=== PATIENT | male | born 1965 | race Caucasian/White ===

== ENCOUNTER 2019-09-28 15:43 | Inpatient (IN) | payer OTHER ==
[~2019-09-28] VITALS: Ht 177.8 cm; Wt 125.1 kg
[2019-09-28] MEDS ORDERED: FUROSEMIDE 40 MG/4 ML VIAL (J1940) IV ONE (16:45)
[2019-09-28 17:09] LABS: BASO # 0.1 10^3/uL (0.0-0.2); BASO % 1.1 % (0.0-1.0); EOS # 0.1 10^3/uL (0.0-0.5); EOS % 1.8 % (0.0-3.0); HEMATOCRIT 46.7 % (42.0-52.0); HEMOGLOBIN 15.3 g/dl (13.5-17.5); LYMPH # 1.7 10^3/uL (1.5-5.0); LYMPH % 27.6 % (24.0-44.0); MEAN CORPUSCULAR HEMOGLOBIN 31.7 pg (27.0-33.0); MEAN CORPUSCULAR HGB CONC 32.8 g/dl (32.0-36.5); MEAN CORPUSCULAR VOLUME 96.7 fl (80.0-96.0); MONO # 0.5 10^3/uL (0.0-0.8); MONO % 7.7 % (0.0-5.0); NEUTROPHILS # 3.8 10^3/uL (1.5-8.5); NEUTROPHILS % 61.5 % (36.0-66.0); PLATELET COUNT, AUTOMATED 156 10^3/uL (150-450); RED BLOOD COUNT 4.83 10^6/uL (4.30-6.10); WHITE BLOOD COUNT 6.2 10^3/uL (4.0-10.0)
[2019-09-28 17:31] LABS: CK-MB VALUE MASS 2.8 NG/ML (<3.6); MB/CK RELATIVE INDEX 1.71 (< OR =4); TROPONIN I 0.03 NG/ML (< 0.10)
--- NOTE | 2019-09-28 17:57 | HPEPDOC ---
[facility] Medical History & Physical Date of Admission Sep 28, 2019 Date of Service: Sep 28, 2019 History and Physical CHIEF COMPLAINT: Dyspnea on exertion HISTORY OF PRESENT ILLNESS: Patient is 54M with no significant known PMH presented to the ER with complaints of worsening BHARDWAJ. He stated that he has had some intermittent episodes of SOB since June but was very limited and did not think much of it until over the past week when symptoms started to worsen. He went to the urgent care where a CXR and basic bloodwork was done, showing an elevated BNP of 3500 and was sent to the ER. He denies any prior cardiac history in the past and does not take medications at home. He was found tachycardic in the ER with HR in 110s and hypertensive with BP 170-180s systolic. He stated that he does take his BP at home from time to time and it usually is around 130s but not as high as now. He reports associated worsening abdominal distension although he does not notice any extremity swelling or any other symptoms otherwise including chest pain, palpitations, fever, chills, recent travels, recent surgeries. 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 He also reports that his heart rate has always been high even when he was in high school playing sports. PAST MEDICAL HISTORY: Refer to [facility] PAST SURGICAL HISTORY: none SOCIAL HISTORY: Consumes 3-8 beers occasionally, not on a daily basis and states that he never undergo any withdraws. Denies tobacco or illicit drug use. FAMILY HISTORY: Father- possibly HTN ALLERGIES: Please see below. REVIEW OF SYSTEMS: 10 point review of system negative except as stated in HPI HOME MEDICATIONS: Please see below. PHYSICAL EXAMINATION: General: No acute distress, Alert Eyes: Normal sclera, EOMI, ENRIQUE HENT: Atraumatic Cardiovascular: Tachycardia, normal rhythm. 1+ pitting edema b/l. Pulmonary: Mild R. base crackle, no wheezing GI: Soft, nontender, distended Skin: Warm and dry Neuro: CN grossly intact. No focal deficits. Strengths equal b/l. Psych: oriented x 3 LABORATORY DATA: See below. IMAGING: CXR- Findings: Cardiomegaly. No focal consolidation. No effusion. No pneumothorax. Skeletal structures intact. Impression: Cardiomegaly. MICROBIOLOGY: Please see below. ASSESSMENT AND PLAN: 1. SOB - Suspects CHF exacerbation in setting of elevated BNP, LE edema, abdominal distension. - Obtain D-dimer to r/o PE given tachycardia, immobility at work and SOB. - Low suspicion, not hypoxic. Follow up with CTA if D-dimer elevated and anticoagulated if needed. - Obtain ECHO. c/w Lasix IV. - daily weights, I/O monitoring. DVT ppx: Lovenox Code status: Full code Disposition: Home once medically improved Vital Signs Vital Signs Date Time Temp Pulse Resp B/P (MAP) Pulse Ox O2 Delivery O2 Flow Rate FiO2 09/28/19 17:16 110 96 Room Air 09/28/19 17:15 170/98 (122) 09/28/19 15:44 97.9 22 Laboratory Data Labs 24H Laboratory Tests 2 09/28/19 16:27: Total Creatine Kinase 164, Creatine Kinase MB 2.8, Creatine Kinase MB Relative Index 1.71, Troponin I 0.03 09/28/19 16:29: Immature Granulocyte % (Auto) 0.3, Neutrophils (%) (Auto) 61.5, Lymphocytes (%) (Auto) 27.6, Monocytes (%) (Auto) 7.7H, Eosinophils (%) (Auto) 1.8, Basophils (%) (Auto) 1.1H, Neutrophils # (Auto) 3.8, Lymphocytes # (Auto) 1.7, Monocytes # (Auto) 0.5, Eosinophils # (Auto) 0.1, Basophils # (Auto) 0.1, Nucleated Red Blood Cells % (auto) 0.0 CBC/BMP Laboratory Tests 09/28/19 16:29 Home Medications No Active Prescriptions or Reported Meds Allergies Coded Allergies: No Known Allergies (Verified Allergy, Unknown, 09/28/19) A-FIB/CHADSVASC A-FIB History Current/History of A-Fib/PAF?: No SOHAM CAMERON MD Sep 28, 2019 17:57
[2019-09-28 19:20] VITALS: BP 155/98
[2019-09-29] VITALS: BP 140/91
[2019-09-29] MEDS ORDERED: FUROSEMIDE 40 MG/4 ML VIAL (J1940) IV SCH (01:00)
[2019-09-29 04:00] VITALS: BP 145/80
[2019-09-29 06:05] LABS: HEMATOCRIT 46.8 % (42.0-52.0); HEMOGLOBIN 15.6 g/dl (13.5-17.5); MEAN CORPUSCULAR HEMOGLOBIN 31.7 pg (27.0-33.0); MEAN CORPUSCULAR HGB CONC 33.3 g/dl (32.0-36.5); MEAN CORPUSCULAR VOLUME 95.1 fl (80.0-96.0); PLATELET COUNT, AUTOMATED 169 10^3/uL (150-450); RED BLOOD COUNT 4.92 10^6/uL (4.30-6.10); WHITE BLOOD COUNT 6.8 10^3/uL (4.0-10.0)
[2019-09-29 06:22] LABS: BLOOD UREA NITROGEN 17 MG/DL (7-18); CALCIUM LEVEL 8.9 MG/DL (8.5-10.1); CARBON DIOXIDE LEVEL 30 MEQ/L (21-32); CHLORIDE LEVEL 104 MEQ/L (98-107); CREATININE FOR GFR 1.17 MG/DL (0.70-1.30); GLOMERULAR FILTRATION RATE > 60.0 (>56); GLUCOSE, FASTING 121 MG/DL (70-100); POTASSIUM SERUM 3.8 MEQ/L (3.5-5.1); SODIUM LEVEL 142 MEQ/L (136-145)
[2019-09-29] MEDS ORDERED: ISOVUE-370 76% 100ML VIAL (Q9967) As Ordered ONE (07:38)
[2019-09-29 08:00] VITALS: BP 168/100
--- NOTE | 2019-09-29 08:27 | REPVR ---
PROCEDURE INFORMATION: Exam: CT Angiography Chest With Contrast Exam date and time: 09/29/19 (7:42am) Age: 54 years old Clinical indication: Tachypnea. (+) D-dimer. Possible pulmonary embolism. TECHNIQUE: Imaging protocol: Computed tomographic angiography of the chest with intravenous contrast. 3D rendering: MIP and/or 3D reconstructed images were created by the technologist. Radiation optimization: All CT scans at this facility use at least one of these dose optimization techniques: automated exposure control; mA and/or kV adjustment per patient size (includes targeted exams where dose is matched to clinical indication); or iterative reconstruction. Contrast material: Isovue 370 Contrast volume: 75 ml Contrast route: IV COMPARISON: Chest films of 09/28/19 FINDINGS: Pulmonary arteries: Normal. No pulmonary emboli. Aorta: Unremarkable. No aortic aneurysm. No aortic dissection. Lungs: Unremarkable. No consolidation. No masses. Pleural space: No pneumothorax. Small bilateral pleural effusions. Heart: Stable cardiomegaly. No pericardial effusion. Lymph nodes: Unremarkable. No enlarged lymph nodes. Bones/joints: Unremarkable. No acute fracture. Soft tissues: Unremarkable. Upper abdomen: Scattered colonic diverticuli. IMPRESSION: No acute findings. Electronically signed by: Emily Heaton On 09/29/2019 08:27:15 AM
[2019-09-29] MEDS: ENOXAPARIN 40 MG/0.4 ML SYRINGE (J1650) SC SCH (08:42)
[2019-09-29] MEDS ORDERED: FLUBLOK(EGG FREE)(QUAD)INFLUENZA VACC 0.5ML SYRINGE (90682)18YRS&OLDER IM ONE (09:00)
[2019-09-29] MEDS: amLODIPine 5 MG TAB PO SCH (09:42)
[2019-09-29 10:44] LABS: NT-PRO BNP 3443 PG/ML (<125)
--- NOTE | 2019-09-29 11:15 | IPNPDOC ---
Date Seen The patient was seen on 09/29/19. Progress Note SUBJECTIVE: Patient was seen and examined this morning sitting up in bed. He states he feels much better and denies any current shortness of breath. He states he notices improvement in his abdominal distention. He denies any chest pain or palpitations. OBJECTIVE PHYSICAL EXAMINATION: VITAL SIGNS: Please see below. GENERAL: Alert, comfortable, in no acute distress HEENT: Normocephalic, atraumatic, moist mucous membranes NECK: Supple, trachea midline, no lymphadenopathy, no JVD CARDIOVASCULAR: Tachycardic rate. Regular rhythm, normal S1 and S2. No murmurs, rubs, or gallops appreciated RESPIRATORY: Clear to auscultation bilaterally with equal air entry bilaterally. No wheezing, rhonchi, or rales. ABDOMEN: Obese and somewhat distended, soft, nontender, bowel sounds present EXTREMITIES: Trace pitting edema bilaterally. No cyanosis. Pulses 2+/4 in bilateral upper and lower extremities SKIN: [place], warm, dry NEUROLOGIC: Alert and oriented 3 to person, place and time. No gross focal d eficits appreciated. PSYCHIATRIC: Mood and affect appropriate LABORATORY DATA, IMAGING STUDIES, MICROBIOLOGY: Please see below. Echocardiogram: Pending ASSESSMENT AND PLAN: 54-year-old male with no known past medical history who presented with worsening dyspnea on exertion, admitted for IV lasix and CHF workup # SOB - Suspects CHF exacerbation in setting of elevated BNP, LE edema, abdominal di stension. - D-dimer positive, CTA did not reveal a PE - Echocardiogram pending, continue IV Lasix - daily weights, I/O monitoring. # Sinus tachycardia - rate improved but remains in the low 100s at rest - CTA negative for PE - continue telemetry DVT prophylaxis: Lovenox Disposition: Home pending echocardiogram ATTENDING NOTE I have personally evaluated and examined the patient. Discussed with resident/student regarding plan of care and agree with the above assessment and plan. VS, I&O, 24H, Fishbone Vital Signs/I&O Vital Signs Date Time Temp Pulse Resp B/P (MAP) Pulse Ox O2 Delivery O2 Flow Rate FiO2 09/29/19 09:42 104 170/110 09/29/19 08:00 97.3 18 96 Room Air I&O- Last 24 Hours up to 6 AM 09/29/19 06:00 Intake Total 320 ml Output Total 6700 ml Balance -6380 ml Laboratory Data 24H LABS Laboratory Tests 2 09/28/19 16:27: Total Creatine Kinase 164, Creatine Kinase MB 2.8, Creatine Kinase MB Relative Index 1.71, Troponin I 0.03 09/28/19 16:29: Immature Granulocyte % (Auto) 0.3, Neutrophils (%) (Auto) 61.5, Lymphocytes (%) (Auto) 27.6, Monocytes (%) (Auto) 7.7H, Eosinophils (%) (Auto) 1.8, Basophils (%) (Auto) 1.1H, Neutrophils # (Auto) 3.8, Lymphocytes # (Auto) 1.7, Monocytes # (Auto) 0.5, Eosinophils # (Auto) 0.1, Basophils # (Auto) 0.1, Nucleated Red Blood Cells % (auto) 0.0 09/29/19 05:13: Nucleated Red Blood Cells % (auto) 0.0, D-Dimer, Quantitative 2909.79H, Anion Gap 8, Glomerular Filtration Rate > 60.0, Calcium Level 8.9, VF-Wfm-Y-Type Natriuretic Peptide 3443H CBC/BMP Laboratory Tests 09/28/19 16:29 09/29/19 05:13 CLARE HAINES D.O. Sep 29, 2019 11:15 SOHAM CAMERON MD Sep 29, 2019 14:25
[2019-09-29 12:00] VITALS: BP 141/91
[2019-09-29 16:00] VITALS: BP 156/106
[2019-09-29] MEDS: FUROSEMIDE 40 MG/4 ML VIAL (J1940) IV SCH (17:40)
[2019-09-29 20:00] VITALS: BP 143/80
--- NOTE | 2019-09-29 20:20 | ECGEPIP ---
[facility] - ED Test Date: 2019-09-28 Pat Name: SCOTT WORKMAN Department: Room: [place] [address] Gender: Male [employer] Operator: NAILA : 1965 Requested By: Anneliese Covarrubias Order Number: [id number] Reading MD: Mingo Wallis Measurements Intervals [place] Rate: 114 P: 51 [place]: 149 QRS: 26 QRSD: 116 T: 125 QT: 376 QTc: 520 Interpretive Statements SINUS TACHYCARDIA POSSIBLE LEFT ATRIAL ENLARGEMENT MODERATE INTRAVENTRICULAR CONDUCTION DELAY NONSPECIFIC T-WAVE ABNORMALITY NO PRIORS FOR COMPARISON Electronically Signed on 09-29-2019 20:20:06 EST by Mingo Wallis
[2019-09-30 04:00] VITALS: BP 142/100
[2019-09-30] MEDS: FUROSEMIDE 40 MG/4 ML VIAL (J1940) IV SCH (05:38)
[2019-09-30 05:52] LABS: HEMATOCRIT 49.8 % (42.0-52.0); HEMOGLOBIN 15.8 g/dl (13.5-17.5); MEAN CORPUSCULAR HEMOGLOBIN 30.4 pg (27.0-33.0); MEAN CORPUSCULAR HGB CONC 31.7 g/dl (32.0-36.5); MEAN CORPUSCULAR VOLUME 95.8 fl (80.0-96.0); PLATELET COUNT, AUTOMATED 163 10^3/uL (150-450); WHITE BLOOD COUNT 5.8 10^3/uL (4.0-10.0)
[2019-09-30 06:10] LABS: BLOOD UREA NITROGEN 18 MG/DL (7-18); CALCIUM LEVEL 8.9 MG/DL (8.5-10.1); CARBON DIOXIDE LEVEL 30 MEQ/L (21-32); CHLORIDE LEVEL 105 MEQ/L (98-107); CREATININE FOR GFR 1.22 MG/DL (0.70-1.30); GLOMERULAR FILTRATION RATE > 60.0 (>56); GLUCOSE, FASTING 132 MG/DL (70-100); SODIUM LEVEL 142 MEQ/L (136-145)
[2019-09-30 07:46] VITALS: BP 134/82
[2019-09-30] MEDS ORDERED: FURO20TA2 PO ×2 (08:57)
[2019-09-30] MEDS ORDERED: LISI10TA4 PO (08:57)
[2019-09-30] MEDS: ENOXAPARIN 40 MG/0.4 ML SYRINGE (J1650) SC SCH (09:00)
--- NOTE | 2019-09-30 09:19 | ECHO ---
DATE OF STUDY: 09/29/2019 REFERRING PHYSICIAN: Dr. Paz INDICATION: Edema. HEIGHT: 178 cm WEIGHT: 138 kg DIMENSIONS: IVS: 1.3 LV: 5.3 LVPW: 1.3 LA: 4.4 Aorta: 3.3 IVC: 2.5 Mitral E wave velocity: 96 E prime septal: 4.4 E prime lateral: 7.5 FINDINGS: The study is of acceptable technical quality. The patient is in sinus rhythm with ventricular rate approximately 110 beats per minute. Left ventricle is normal size. Mild left ventricular hypertrophy is noted. There is severe global hypokinesis, estimated LVEF is approximately 20%. Right ventricle was poorly visualized, but does not appear grossly enlarged. Left atrium is moderately enlarged, right atrium was poorly seen. Aortic valve has three cusps. It is mildly sclerotic, but mobility is preserved. There are also degenerative abnormalities of the mitral valve with mitral annular calcifications. Tricuspid valve appears normal. Pulmonic valve was not well seen. Trivial pericardial effusion is noted. Inferior vena cava is dilated and there is minimal collapse with inspiration indicative of very high central venous pressure. Aortic root is normal. Aortic arch and abdominal aorta were not well seen. Doppler interrogation of aortic valve reveals no stenosis or insufficiency. There is [id number] mitral insufficiency and trace tricuspid insufficiency. Unfortunately, quality of TR jet was not sufficient to adequately estimate pulmonary artery pressure. Evaluation of diastolic function is compromised by fusion of mitral E and A wave, but tissue Doppler velocities are markedly reduced and I assume at least moderate diastolic dysfunction. CONCLUSIONS: 1. Study is of acceptable technical quality, the patient is in sinus rhythm. 2. Normal LV size with mild LVH and severe global hypokinesis, estimated LVEF approximately 20%. At least grade 2 diastolic dysfunction. 2. No hemodynamically significant valvular disease. 3. Very high central venous pressure. 4. Unable to estimate pulmonary artery pressure. COMMENT: Subacute bacterial endocarditis (SBE) prophylaxis is not recommended. The study is most consistent with nonischemic cardiomyopathy, but ischemic cardiomyopathy should be considered as well.
[2019-09-30] MEDS ORDERED: ENTR1TAB PO (09:20)
[2019-09-30 09:56] VITALS: BP 134/82
[2019-09-30] MEDS: amLODIPine 5 MG TAB PO SCH (09:56)
--- NOTE | 2019-09-30 10:46 | DS.PDOC ---
Discharge Summary General Date of Admission Sep 28, 2019 at 17:45 Date of Discharge 09/30/2019 Attending Physician: SOHAM CAMERON MD Discharge Summary PROCEDURES PERFORMED DURING STAY: None. ADMITTING DIAGNOSES: 1. Shortness of breath DISCHARGE DIAGNOSES: 1. Systolic and diastolic CHF with reduced EF 2. Ischemic vs nonischemic cardiomyopathy COMPLICATIONS/CHIEF COMPLAINT: Shortness Of Breath. HISTORY OF PRESENT ILLNESS: 54 year old male who presented to the ED with worsening dyspnea on exertion, which initially started in June. The patient states that over the past week his symptoms started to worsen to the point where he went to urgent care. He had also noticed worsening abdominal distention at home but denied any increased leg swelling, chest pain, palpitations, fevers, chills, or recent travel. While at urgent care, the patient was noted to have an elevated BNP of 3500 and was sent to the emergency room. During emergency room evaluation, the patient was found to have an elevated heart rate in the 110s and hypertension with systolic blood pressures in the 170s. He denies any history of reactive disease in the past and does not take any medications at home. He states that he thinks his heart rate has always been high, even when he was young in high school. He denies knowing any history of elevated blood pressures. He also admits to drinking up to 8 beers a day a few times a week. He denies any smoking or illicit drug use. HOSPITAL COURSE: The patient was admitted to the hospital and started on IV Lasix for diuresis. Due to his tachycardia and increasing shortness of breath, a d-dimer was ordered to rule out PE. D-dimer came back positive and follow-up CTA of the chest was negative for PE. The patient noted symptomatic improvement of his shortness of breath and abdominal distention with the IV Lasix. An echocardiogram was also ordered to evaluate for CHF. The echocardiogram revealed systolic dysfunction with an EF of 20% and grade 2 diastolic dysfunction. The patient was continued on oral Lasix and started on Entresto. Diet modification with low sodium diet was also discussed with the patient. The patient will follow-up with Dr. Almodovar in the outpatient setting for further evaluation and management of his heart failure. He will also establish with a PCP as he has not been to a doctor in many years. On day of discharge, the patient was found to be stable and safe for discharge home with close follow-up. DISCHARGE MEDICATIONS: Please see below. ALLERGIES: Please see below. PHYSICAL EXAMINATION ON DISCHARGE: VITAL SIGNS: Please see below. GENERAL: Alert, comfortable, in no acute distress HEENT: Normocephalic, atraumatic, moist mucous membranes NECK: Supple, trachea midline, no lymphadenopathy, no JVD CARDIOVASCULAR: Tachycardic rate. Regular rhythm, normal S1 and S2. No murmurs, rubs, or gallops appreciated RESPIRATORY: Clear to auscultation bilaterally with equal air entry bilaterally. No wheezing, rhonchi, or rales. ABDOMEN: Obese and somewhat distended, soft, nontender, bowel sounds present EXTREMITIES: Trace pitting edema bilaterally. No cyanosis. Pulses 2+/4 in bilateral upper and lower extremities SKIN: [place], warm, dry NEUROLOGIC: Alert and oriented 3 to person, place and time. No gross focal deficits appreciated. PSYCHIATRIC: Mood and affect appropriate LABORATORY DATA: Please see below. IMAGING: CTA 09/29: Cardiomegaly. No acute findings. Echocardiogram: 1. Study is of acceptable technical quality, the patient is in sinus rhythm. 2. Normal LV size with mild LVH and severe global hypokinesis, estimated LVEF approximately 20%. At least grade 2 diastolic dysfunction. 3. No hemodynamically significant valvular disease. 4. Very high central venous pressure. 5. Unable to estimate pulmonary artery pressure. PROGNOSIS: Fair ACTIVITY: As tolerated. 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 Follow-up with your PCP within 7 days 2. Follow up with cardiology as soon as possible to discuss echocardiogram results and further treatment needs. 3. Please start taking Lasix 20mg and Lisinopril 10mg daily 4. If your symptoms return or your condition worsens, please call your PCP or return to the ED for further evaluation. ITEMS TO FOLLOWUP ON ON OUTPATIENT: 1. New diagnosis of CHF DISCHARGE CONDITION: Stable. TIME SPENT ON DISCHARGE: 35 minutes. Attending attestation: I have personally evaluated and examined the patient. Discussed with resident/student regarding plan of care and agree with the above discharge assessment and plan. Patient found to have newly diagnosed combine systolic and diastolic heart failure EF 20%, likely have been ongoing for many years without a diagnosis as patient does not follow a PCP routinely. Patient currently asymptomatic with no chest pain and SOB had resolved. LE swelling had been very minimal, from 1+ to trace currently. Had extensively discussed goals of care and medical compliance in an attempt to improve cardiac function. He is stable for discharge at this time but will require close cardiology follow up for further workup while maintaining on GDMT. Vital Signs/I&Os Vital Signs Date Time Temp Pulse Resp B/P (MAP) Pulse Ox O2 Delivery O2 Flow Rate FiO2 09/30/19 09:56 99 134/82 09/30/19 07:46 97.6 18 96 Room Air I&O- Last 24 Hours up to 6 AM 09/30/19 06:00 Intake Total 1020 ml Output Total 4350 ml Balance -3330 ml Laboratory Data Labs 24H Laboratory Tests 2 09/30/19 05:31: Nucleated Red Blood Cells % (auto) 0.0, Anion Gap 7L, Glomerular Filtration Rate > 60.0, Calcium Level 8.9 CBC/BMP Laboratory Tests 09/30/19 05:31 Discharge Medications Scheduled Furosemide (Furosemide) 20 Mg Tablet, 20 MG PO DAILY Sacubitril/Valsartan (Entresto 24 mg-26 mg Tablet) 1 Each Tablet, 1 TAB PO BID Allergies Coded Allergies: No Known Allergies (Verified Allergy, Unknown, 09/28/19) CLARE HAINES D.O. Sep 30, 2019 10:46 SOHAM CAMERON MD Sep 30, 2019 10:51
[2019-09-30] MEDS ORDERED: CARV6.25 PO (11:08)
== END 2019-09-30 11:05 | disposition home or self-care (01) | DRG 194 ==
LOC: M ED 15:43 → M ED INP 17:45 → M PCU 19:22
PROVIDERS: ADMIT Student in an Organized Health Care Education/Training Program; ATTEND Student in an Organized Health Care Education/Training Program
DX: I50.43 Acute on chronic combined systolic (congestive) and diastolic (congestive) heart failure (principal); I42.8 Other cardiomyopathies; R00.0 Tachycardia, unspecified; I25.5 Ischemic cardiomyopathy

== ENCOUNTER → 2019-09-28 | Outpatient (CLI) | payer OTHER ==
[~2019-09-28] MED LIST: CARV6.25 PO; ENTR1TAB PO; FURO20TA2 PO; LISI10TA4 PO
--- NOTE | 2019-09-28 14:30 | REP ---
Clinical: Shortness of breath. Technique: PA and lateral. Comparison: None. Findings: Cardiomegaly. No focal consolidation. No effusion. No pneumothorax. Skeletal structures intact. Impression: Cardiomegaly. Electronically Signed by Nael Garcia MD 09/28/2019 02:21 P
[2019-09-28 15:08] LABS: ALBUMIN 3.6 GM/DL (3.2-5.2); ALT/SGPT 68 U/L (12-78); BLOOD UREA NITROGEN 19 MG/DL (7-18); CALCIUM LEVEL 8.6 MG/DL (8.5-10.1); CARBON DIOXIDE LEVEL 23 MEQ/L (21-32); CHLORIDE LEVEL 106 MEQ/L (98-107); CK-MB VALUE MASS 2.8 NG/ML (<3.6); CPK CREATINE PHOSPHOKINASE 179 U/L (39-308); GLOMERULAR FILTRATION RATE > 60.0 (>56); GLUCOSE, FASTING 132 MG/DL (70-100); MB/CK RELATIVE INDEX 1.56 (< OR =4); NT-PRO BNP 3493 PG/ML (<125); POTASSIUM SERUM 4.6 MEQ/L (3.5-5.1); SODIUM LEVEL 142 MEQ/L (136-145); TOTAL PROTEIN 6.9 GM/DL (6.4-8.2)
== END ==
LOC: M LAB 13:39
PROVIDERS: ATTEND Physician Assistant Medical
DX: I51.7 Cardiomegaly (principal); R06.02 Shortness of breath; R79.89 Other specified abnormal findings of blood chemistry

== ENCOUNTER → 2019-10-05 | Outpatient (CLI) | payer OTHER ==
[2019-10-05 14:19] LABS: CHOLESTEROL RISK RATIO 7.531 (<5)
[2019-10-05 15:13] LABS: HEMOGLOBIN A1c 6.7 %
== END ==
LOC: M PLALAB 10:55
PROVIDERS: ATTEND Internal Medicine
DX: Z00.00 Encounter for general adult medical examination without abnormal findings (principal)

== ENCOUNTER → 2020-05-31 | Outpatient (REF) | payer OTHER ==
[2020-05-31 20:23] LABS: ALBUMIN 3.7 GM/DL (3.2-5.2); ALT/SGPT 26 U/L (12-78); BILIRUBIN,TOTAL 0.6 MG/DL (0.2-1.0); BLOOD UREA NITROGEN 20 MG/DL (7-18); CALCIUM LEVEL 8.9 MG/DL (8.5-10.1); CARBON DIOXIDE LEVEL 25 MEQ/L (21-32); CHLORIDE LEVEL 108 MEQ/L (98-107); CHOLESTEROL LEVEL 139 MG/DL (<200); CHOLESTEROL RISK RATIO 3.971 (<5); CREATININE FOR GFR 0.98 MG/DL (0.70-1.30); GLOMERULAR FILTRATION RATE > 60.0 (>56); GLUCOSE, FASTING 150 MG/DL (70-100); HDL CHOLESTEROL 35 MG/DL (>40); LDL CHOLESTEROL 80 MG/DL (<100); NON-HDL-C 104 MG/DL; POTASSIUM SERUM 4.4 MEQ/L (3.5-5.1); SODIUM LEVEL 140 MEQ/L (136-145); TOTAL PROTEIN 6.5 GM/DL (6.4-8.2); TRIGLYCERIDES LEVEL 119 MG/DL (<150)
== END ==
LOC: M LABDRAWC 11:42
PROVIDERS: ATTEND Nurse Practitioner Family
DX: I25.10 Atherosclerotic heart disease of native coronary artery without angina pectoris (principal); I50.40 Unspecified combined systolic (congestive) and diastolic (congestive) heart failure

== ENCOUNTER → 2020-09-07 | Outpatient (REF) | payer OTHER ==
[2020-09-07 13:45] LABS: CALCIUM LEVEL 9.2 MG/DL (8.5-10.1); MAGNESIUM LEVEL 2.2 MG/DL (1.8-2.4)
[2020-09-07 13:50] LABS: HEMOGLOBIN A1c 5.4 %
== END ==
LOC: M SFHCPLAZ 10:09
DX: E11.9 Type 2 diabetes mellitus without complications (principal); R25.2 Cramp and spasm

== ENCOUNTER → 2020-10-19 | Outpatient (CLI) | payer OTHER ==
[~2020-10-19] MED LIST changes: +ASPI81TA26 PO; +ATOR80TA59 PO; +CARV25TA PO; +LOSA50TA88 PO; +METF10004 PO
== END ==
LOC: M LABSMTC 10:34
PROVIDERS: ATTEND Anesthesiology
DX: Z01.812 Encounter for preprocedural laboratory examination (principal); Z20.822 Contact with and (suspected) exposure to COVID-19

== ENCOUNTER → 2020-12-24 | Outpatient (CLI) | payer OTHER ==
[~2020-12-24] MED LIST changes: +LISI10TA22 PO; -LISI10TA4 PO
== END ==
LOC: M LABSMTC 08:05
PROVIDERS: ATTEND Anesthesiology
DX: Z01.812 Encounter for preprocedural laboratory examination (principal); Z20.822 Contact with and (suspected) exposure to COVID-19

== ENCOUNTER 2020-12-29 07:55 | Day surgery (SDC) | payer OTHER ==
[~2020-12-29] VITALS: Ht 177.8 cm; Wt 102.1 kg
[~2020-12-29 07:55] MED LIST changes: +LIDOCAINE 2% 100MG/5ML SDV (FOR ANES.) As Ordered ONE; +NS 1,000 ML IV ONE; +propofoL 200 MG/20 ML VIAL As Ordered ONE
--- NOTE | 2020-12-29 09:23 | ROOR ---
Patient Name: Rusty Pan Procedure Date: 12/29/2020 8:35 AM Date of : 1965 Age: 55 Room: [facility] Gender: Male Note Status: Finalized Procedure: Colonoscopy Indications: Screening for colorectal malignant neoplasm Providers: Dioni Lopez MD Referring MD: Dee Nolasco Md, [facility] Requesting Provider: Medicines: Monitored Anesthesia Care Complications: No immediate complications. Procedure: Pre-Anesthesia Assessment: - Prior to the procedure, a History and Physical was performed, and patient medications and allergies were reviewed. The patient is competent. The risks and benefits of the procedure and the sedation options and risks were discussed with the patient. All questions were answered and informed consent was obtained. Patient identification and proposed procedure were verified by the physician, the nurse and the anesthesiologist in the procedure room. Mental Status Examination: alert and oriented. Airway Examination: normal oropharyngeal airway and neck mobility. Respiratory Examination: clear to auscultation. CV Examination: normal. Prophylactic Antibiotics: The patient does not require prophylactic antibiotics. Prior Anticoagulants: The patient has taken no previous anticoagulant or antiplatelet agents. ASA Grade Assessment: II - A patient with mild systemic disease. After reviewing the risks and benefits, the patient was deemed in satisfactory condition to undergo the procedure. The anesthesia plan was to use monitored anesthesia care (MAC). Immediately prior to administration of medications, the patient was re-assessed for adequacy to receive sedatives. The heart rate, respiratory rate, oxygen saturations, blood pressure, adequacy of pulmonary ventilation, and response to care were monitored throughout the procedure. The physical status of the patient was re-assessed after the procedure. The Colonoscope was introduced through the anus and advanced to the terminal ileum, with identification of the appendiceal orifice and IC valve. The colonoscopy was performed without difficulty. The patient tolerated the procedure well. The quality of the bowel preparation was good. The terminal ileum, ileocecal valve, appendiceal orifice, and rectum were photographed. Scope insertion time was 2 minutes. Scope withdrawal time was 12 minutes. The total duration of the procedure was 14 minutes. Findings: The perianal and digital rectal examinations were normal. The terminal ileum appeared normal. Five sessile polyps were found in the recto-sigmoid colon, descending colon and ascending colon. The polyps were 4 to 10 mm in size. These polyps were removed with a cold snare. Resection and retrieval were complete. To close a defect after polypectomy, one hemostatic clip was successfully placed. There was no bleeding at the end of the procedure. Verification of patient identification for the specimen was done by the physician and nurse using the patient's name, date and medical record number. Estimated blood loss was minimal. Multiple small and large-mouthed diverticula were found from sigmoid to descending colon. There was no evidence of diverticular bleeding. Non-bleeding external and internal hemorrhoids were found during retroflexion. The hemorrhoids were medium-sized. Impression: - The examined portion of the ileum was normal. - Five 4 to 10 mm polyps at the recto-sigmoid colon, in the descending colon and in the ascending colon, removed with a cold snare. Resected and retrieved. Clip was placed. - Moderate diverticulosis from sigmoid to descending colon. There was no evidence of diverticular bleeding. - Non-bleeding external and internal hemorrhoids. Recommendation: - Patient has a contact number available for emergencies. The signs and symptoms of potential delayed complications were discussed with the patient. Return to normal activities tomorrow. Written discharge instructions were provided to the patient. - High fiber diet. - Continue present medications. - Use fiber, for example Citrucel, Fibercon, Konsyl or Metamucil. - Await pathology results. - Repeat colonoscopy in 3 - 5 years for surveillance based on pathology results. - Telephone GI clinic for pathology results in 2 weeks. - Return to primary care physician. Procedure Code(s): --- Professional --- 62378, Colonoscopy, flexible; with removal of tumor(s), polyp(s), or other lesion(s) by snare technique Diagnosis Code(s): --- Professional --- Z12.11, Encounter for screening for malignant neoplasm of colon K64.8, Other hemorrhoids K63.5, Polyp of colon K57.30, Diverticulosis of large intestine without perforation or abscess without bleeding CPT copyright 2019 [employer]. All rights reserved. The codes documented in this report are preliminary and upon band tacker review may be revised to meet current compliance requirements. Dioni Lopez MD Dioni Lopez MD 12/29/2020 9:23:18 AM Electronically signed by Dioni Lopez MD Number of Addenda: 0 Note Initiated On: 12/29/2020 8:35 AM Estimated Blood Loss: Estimated blood loss was minimal.
[2020-12-29 09:35] VITALS: BP 112/56
== END 2020-12-29 09:40 | disposition home or self-care (01) ==
LOC: M OPP 07:55
PROVIDERS: ATTEND Internal Medicine Gastroenterology
DX: Z12.11 Encounter for screening for malignant neoplasm of colon (principal); K63.5 Polyp of colon; K57.30 Diverticulosis of large intestine without perforation or abscess without bleeding; K64.8 Other hemorrhoids; I50.9 Heart failure, unspecified; E11.9 Type 2 diabetes mellitus without complications; Z79.82 Long term (current) use of aspirin; Z79.84 Long term (current) use of oral hypoglycemic drugs; Z79.899 Other long term (current) drug therapy

== ENCOUNTER → 2021-08-01 | Outpatient (REF) | payer OTHER ==
[~2021-08-01] MED LIST changes: -LIDOCAINE 2% 100MG/5ML SDV (FOR ANES.) As Ordered ONE; -NS 1,000 ML IV ONE; -propofoL 200 MG/20 ML VIAL As Ordered ONE
[2021-08-01 11:25] LABS: HEMATOCRIT 42.2 % (42.0-52.0); HEMOGLOBIN 14.4 g/dl (13.5-17.5); MEAN CORPUSCULAR HEMOGLOBIN 31.4 pg (27.0-33.0); MEAN CORPUSCULAR HGB CONC 34.1 g/dl (32.0-36.5); MEAN CORPUSCULAR VOLUME 92.1 fl (80.0-96.0); PLATELET COUNT, AUTOMATED 171 10^3/uL (150-450); RED BLOOD COUNT 4.58 10^6/uL (4.30-6.10); WHITE BLOOD COUNT 4.7 10^3/uL (4.0-10.0)
[2021-08-01 11:37] LABS: ALBUMIN 3.6 GM/DL (3.2-5.2); ALT/SGPT 36 U/L (12-78); BILIRUBIN,TOTAL 0.6 MG/DL (0.2-1.0); BLOOD UREA NITROGEN 16 MG/DL (7-18); CARBON DIOXIDE LEVEL 29 MEQ/L (21-32); CHLORIDE LEVEL 109 MEQ/L (98-107); CHOLESTEROL LEVEL 105 MG/DL (<200); CHOLESTEROL RISK RATIO 2.625 (<5); CREATININE FOR GFR 0.86 MG/DL (0.70-1.30); FREE T4 0.94 NG/DL (0.76-1.46); GLOMERULAR FILTRATION RATE > 60.0 (>56); GLUCOSE, FASTING 168 MG/DL (70-100); HDL CHOLESTEROL 40 MG/DL (>40); LDL CHOLESTEROL 51 MG/DL (<100); NON-HDL-C 65 MG/DL; POTASSIUM SERUM 4.5 MEQ/L (3.5-5.1); SODIUM LEVEL 142 MEQ/L (136-145); TOTAL PROTEIN 6.7 GM/DL (6.4-8.2); TRIGLYCERIDES LEVEL 72 MG/DL (<150)
[2021-08-01 11:48] LABS: HEMOGLOBIN A1c 5.5 %
[2021-08-01 12:28] LABS: HIV 1&2 SCREEN CENTAUR NEGATIVE (NEGATIVE)
[2021-08-01 12:42] LABS: HEPATITIS C VIRUS ABY INDEX < 0.0 INDEX (<0.8)
== END ==
LOC: M SFHCPLAZ 07:44
DX: Z00.00 Encounter for general adult medical examination without abnormal findings (principal); E78.5 Hyperlipidemia, unspecified; E66.9 Obesity, unspecified; R73.03 Prediabetes

== ENCOUNTER → 2021-08-07 | Outpatient (REF) | payer OTHER | LOC: M LAB REF 19:31 | PROVIDERS: ATTEND Physician Assistant | DX: D23.39 Other benign neoplasm of skin of other parts of face (principal) ==

== ENCOUNTER → 2022-09-10 | Outpatient (REF) | payer OTHER ==
[~2022-09-10] MED LIST changes: +LOSA50TA28 PO; -LOSA50TA88 PO
[2022-09-10 11:57] LABS: HEMOGLOBIN A1c 5.5 % (4.0-6.0)
[2022-09-10 12:28] LABS: ALBUMIN 3.7 G/DL (3.2-5.2); ALKALINE PHOSPHATASE 40 U/L (46-116); ALT/SGPT 29 U/L (7.0-40); AST/SGOT 20 U/L (<34); BILIRUBIN,TOTAL 0.7 MG/DL (0.3-1.2); BLOOD UREA NITROGEN 21 MG/DL (9-23); CALCIUM LEVEL 8.8 MG/DL (8.5-10.1); CARBON DIOXIDE LEVEL 28 MMOL/L (20-31); CHLORIDE LEVEL 105 MMOL/L (98-107); CHOLESTEROL LEVEL 111 MG/DL (<200); CHOLESTEROL RISK RATIO 2.73 (<5); GLOMERULAR FILTRATION RATE > 60.0 (>56); GLUCOSE, FASTING 125 MG/DL (60-100); HDL CHOLESTEROL 40.6 MG/DL (>40); LDL CHOLESTEROL 50.6 MG/DL (<100); NON-HDL-C 70 MG/DL; POTASSIUM SERUM 4.7 MMOL/L (3.5-5.1); SODIUM LEVEL 141 MMOL/L (136-145); TOTAL PROTEIN 6.4 G/DL (5.7-8.2); TRIGLYCERIDES LEVEL 99 MG/DL (<150)
== END ==
LOC: M SFHCCLAY 09:00
PROVIDERS: ATTEND Student in an Organized Health Care Education/Training Program
DX: E78.5 Hyperlipidemia, unspecified (principal); R73.03 Prediabetes; E66.9 Obesity, unspecified

== ENCOUNTER 2022-10-11 14:28 | Emergency (ER) | payer OTHER ==
[~2022-10-11] VITALS: Ht 177.8 cm; Wt 110.8 kg
[2022-10-11] MEDS ORDERED: OXYMETAZOLINE 0.05% NASAL SPRAY (AFRIN) ONE (16:15)
[2022-10-11 16:31] VITALS: BP 138/72
== END 2022-10-11 16:46 | disposition home or self-care (01) ==
LOC: M ED 16:25
DX: R04.0 Epistaxis (principal); Z87.09 Personal history of other diseases of the respiratory system; E11.9 Type 2 diabetes mellitus without complications; I10 Essential (primary) hypertension; Z79.82 Long term (current) use of aspirin; Z79.84 Long term (current) use of oral hypoglycemic drugs; Z79.899 Other long term (current) drug therapy

== ENCOUNTER → 2023-03-25 | Outpatient (REF) | payer OTHER | LOC: M SFHCPLAZ 16:58 | PROVIDERS: ATTEND Family Medicine | DX: Z53.9 Procedure and treatment not carried out, unspecified reason (principal) ==

== ENCOUNTER → 2023-05-16 | Outpatient (CLI) | payer OTHER ==
[2023-05-16 17:29] LABS: HEMOGLOBIN 14.6 g/dl (13.5-17.5); MEAN CORPUSCULAR HEMOGLOBIN 30.8 pg (27.0-33.0); MEAN CORPUSCULAR HGB CONC 33.2 g/dl (32.0-36.5); MEAN CORPUSCULAR VOLUME 92.8 fl (80.0-96.0); PLATELET COUNT, AUTOMATED 196 10^3/uL (150-450); RED BLOOD COUNT 4.74 10^6/uL (4.30-6.10); WHITE BLOOD COUNT 6.5 10^3/uL (4.0-10.0)
[2023-05-16 17:59] LABS: ALKALINE PHOSPHATASE 50 U/L (46-116); ALT/SGPT 39 U/L (7.0-40); AST/SGOT 24 U/L (<34); BILIRUBIN,TOTAL 0.9 MG/DL (0.3-1.2); BLOOD UREA NITROGEN 18 MG/DL (9-23); CALCIUM LEVEL 9.3 MG/DL (8.5-10.1); CARBON DIOXIDE LEVEL 27 MMOL/L (20-31); CHLORIDE LEVEL 108 MMOL/L (98-107); CHOLESTEROL LEVEL 92 MG/DL (<200); CHOLESTEROL RISK RATIO 2.94 (<5); CREATININE FOR GFR 0.88 MG/DL (0.70-1.30); GLOMERULAR FILTRATION RATE > 60.0 (>56); GLUCOSE, FASTING 89 MG/DL (60-100); HDL CHOLESTEROL 31.2 MG/DL (>40); LDL CHOLESTEROL 36.2 MG/DL (<100); NON-HDL-C 60.8 MG/DL; POTASSIUM SERUM 4.5 MMOL/L (3.5-5.1); SODIUM LEVEL 141 MMOL/L (136-145); TOTAL PROTEIN 6.9 G/DL (5.7-8.2); TRIGLYCERIDES LEVEL 123 MG/DL (<150)
== END ==
LOC: M PLALAB 15:50
PROVIDERS: ATTEND Student in an Organized Health Care Education/Training Program
DX: Z01.818 Encounter for other preprocedural examination (principal)

== ENCOUNTER 2023-06-04 06:14 | Day surgery (SDC) | payer OTHER ==
[~2023-06-04] VITALS: Ht 177.8 cm; Wt 109.3 kg
[~2023-06-04 06:14] MED LIST changes: +EZET10TA21 PO
[2023-06-04] MEDS ORDERED: CLINDAMYCIN 900 MG in IV 1 EA IV ONE (06:30)
[2023-06-04] MEDS ORDERED: LR 1,000 ML IV SCH (06:40)
[2023-06-04] MEDS ORDERED: LIDOCAINE W/EPINEPHRINE 1% 20ML VIAL As Ordered ONE (07:13)
[2023-06-04] MEDS ORDERED: BACITRACIN OINTMENT 30GM TUBE As Ordered ONE (07:13)
[2023-06-04] MEDS ORDERED: POVIDONE-IODINE 5% OPHTH PREP SOL 30ML As Ordered ONE (07:15)
[2023-06-04] MEDS ORDERED: LIDOCAINE 2% 100MG/5ML SDV (FOR ANES.) As Ordered ONE (07:27)
[2023-06-04] MEDS ORDERED: propofoL 200 MG/20 ML VIAL As Ordered ONE (07:27)
[2023-06-04] MEDS ORDERED: ONDANSETRON 4MG 2ML VIAL As Ordered ONE (07:27)
[2023-06-04] MEDS ORDERED: MIDAZOLAM INJ 2MG/2ML VIAL As Ordered ONE (07:27)
[2023-06-04] MEDS ORDERED: fentaNYL 250 MCG/5 ML INJECTION As Ordered ONE (07:27)
[2023-06-04] MEDS ORDERED: dexmedeTOMIDine (4MCG/ML)200MCG/50ML BTL (PRECEDEX) As Ordered ONE (07:55)
[2023-06-04] MEDS ORDERED: ACETAMINOPHEN 1000MG 100ML IV BAG As Ordered ONE (08:06)
[2023-06-04 09:16] VITALS: BP 132/60; TEMP 97.5; O2SAT 100
== END 2023-06-04 09:38 | disposition home or self-care (01) ==
LOC: M SDC 06:14
PROVIDERS: ATTEND Plastic Surgery Surgery of the Hand
DX: D03.39 Melanoma in situ of other parts of face (principal); I10 Essential (primary) hypertension; E78.00 Pure hypercholesterolemia, unspecified; E11.9 Type 2 diabetes mellitus without complications; Z88.0 Allergy status to penicillin; Z79.82 Long term (current) use of aspirin; Z79.84 Long term (current) use of oral hypoglycemic drugs; Z79.899 Other long term (current) drug therapy; Z87.891 Personal history of nicotine dependence
CPT/HCPCS: 11642; 88305; J0131; J0737; J1100; J2250; J2405; J3010

== ENCOUNTER 2023-06-25 06:15 | Day surgery (SDC) | payer OTHER ==
[~2023-06-25] VITALS: Ht 177.8 cm; Wt 108.9 kg
[~2023-06-25 06:15] MED LIST changes: +UNRESOLVED CLARIFICATION ENTRY XX SCH
[2023-06-25] MEDS ORDERED: LR 1,000 ML IV SCH ×2 (06:40→08:45)
[2023-06-25] MEDS ORDERED: BACITRACIN OINTMENT 30GM TUBE As Ordered ONE (07:09)
[2023-06-25] MEDS ORDERED: POVIDONE-IODINE 5% OPHTH PREP SOL 30ML As Ordered ONE (07:09)
[2023-06-25] MEDS ORDERED: LIDOCAINE 2% W/EPINEPHRINE 20ML VIAL **PRES FREE As Ordered ONE (07:10)
[2023-06-25] MEDS ORDERED: LIDOCAINE 2% 100MG/5ML SDV (FOR ANES.) As Ordered ONE (07:23)
[2023-06-25] MEDS ORDERED: propofoL 200 MG/20 ML VIAL As Ordered ONE (07:23)
[2023-06-25] MEDS ORDERED: ONDANSETRON 4MG 2ML VIAL As Ordered ONE (07:23)
[2023-06-25] MEDS ORDERED: MIDAZOLAM INJ 2MG/2ML VIAL As Ordered ONE (07:24)
[2023-06-25] MEDS ORDERED: fentaNYL 100 MCG/2 ML INJECTION As Ordered ONE (07:24)
[2023-06-25] MEDS ORDERED: SEVOFLURANE INHAL SOLN 250 ML BTL As Ordered ONE (07:30)
[2023-06-25] MEDS ORDERED: CLINDAMYCIN 900 MG in IV 1 EA IV ONE (07:45)
[2023-06-25] MEDS ORDERED: PHENYLephrine 500MCG 5ML (100MCG/ML) SYRINGE As Ordered ONE (07:59)
[2023-06-25] MEDS ORDERED: LACRILUBE (AKWA TEARS) OPHTH OINT 3.5GM As Ordered ONE (07:59)
[2023-06-25] MEDS ORDERED: ePHEDrine SULFATE 25 MG/5 ML(5MG/ML) SYRINGE As Ordered ONE (08:11)
[2023-06-25] MEDS ORDERED: ACETAMINOPHEN 1000MG 100ML IV BAG As Ordered ONE (08:19)
[2023-06-25] MEDS ORDERED: ONDANSETRON 4MG 2ML VIAL IV PRN (08:45)
[2023-06-25 10:25] VITALS: BP 139/63; TEMP 96.6; O2SAT 97
== END 2023-06-25 10:25 | disposition home or self-care (01) ==
LOC: M SDC 06:15
PROVIDERS: ATTEND Plastic Surgery Surgery of the Hand
DX: D03.39 Melanoma in situ of other parts of face (principal); I10 Essential (primary) hypertension; E78.5 Hyperlipidemia, unspecified; E11.9 Type 2 diabetes mellitus without complications; M10.9 Gout, unspecified; Z88.0 Allergy status to penicillin; Z79.82 Long term (current) use of aspirin; Z79.84 Long term (current) use of oral hypoglycemic drugs; Z79.899 Other long term (current) drug therapy
CPT/HCPCS: 11644; 88305; J0131; J0737; J1100; J2250; J2371; J2405; J3010

== ENCOUNTER → 2023-08-12 | Outpatient (REF) | payer OTHER ==
[~2023-08-12] MED LIST changes: -UNRESOLVED CLARIFICATION ENTRY XX SCH
== END ==
LOC: M LAB REF 12:09
PROVIDERS: ATTEND Plastic Surgery Surgery of the Hand
DX: L57.8 Other skin changes due to chronic exposure to nonionizing radiation (principal)

== ENCOUNTER → 2024-03-11 | Outpatient (REF) | payer OTHER | LOC: M SFHCPLAZ 17:07 | PROVIDERS: ATTEND Family Medicine | DX: E78.5 Hyperlipidemia, unspecified (principal); Z12.5 Encounter for screening for malignant neoplasm of prostate; R73.03 Prediabetes; I50.20 Unspecified systolic (congestive) heart failure; Z53.9 Procedure and treatment not carried out, unspecified reason ==

== ENCOUNTER → 2024-09-21 | Outpatient (CLI) | payer OTHER ==
[2024-09-21 13:37] LABS: HEMATOCRIT 43.8 % (42.0-52.0); MEAN CORPUSCULAR HEMOGLOBIN 31.3 pg (27.0-33.0); MEAN CORPUSCULAR HGB CONC 34.2 g/dl (32.0-36.5); MEAN CORPUSCULAR VOLUME 91.4 fl (80.0-96.0); PLATELET COUNT, AUTOMATED 169 10^3/uL (150-450); RED BLOOD COUNT 4.79 10^6/uL (4.30-6.10)
[2024-09-21 14:07] LABS: ALBUMIN 3.7 G/DL (3.2-5.2); ALKALINE PHOSPHATASE 43 U/L (40-129); ALT/SGPT 29 U/L (7.0-40); AST/SGOT 17 U/L (<34); BLOOD UREA NITROGEN 22 MG/DL (9-23); CALCIUM LEVEL 9.2 MG/DL (8.5-10.1); CARBON DIOXIDE LEVEL 26 MMOL/L (20-31); CHLORIDE LEVEL 109 MMOL/L (98-107); CHOLESTEROL LEVEL 116 MG/DL (<200); CHOLESTEROL RISK RATIO 2.88 (<5); CREATININE FOR GFR 0.86 MG/DL (0.70-1.30); GLOMERULAR FILTRATION RATE > 60.0 (>56); GLUCOSE, FASTING 128 MG/DL (60-100); HDL CHOLESTEROL 40.2 MG/DL (>40); LDL CHOLESTEROL 62.4 MG/DL (<100); NON-HDL-C 75.8 MG/DL; POTASSIUM SERUM 4.7 MMOL/L (3.5-5.1); SODIUM LEVEL 142 MMOL/L (136-145); TOTAL PROTEIN 6.8 G/DL (5.7-8.2); TRIGLYCERIDES LEVEL 67 MG/DL (<150)
== END ==
LOC: M WUC 09:19
PROVIDERS: ATTEND Nurse Practitioner Acute Care
DX: E78.49 Other hyperlipidemia (principal); I25.10 Atherosclerotic heart disease of native coronary artery without angina pectoris

== ENCOUNTER → 2024-10-19 | Outpatient (CLI) | payer OTHER ==
[2024-10-19 18:24] LABS: HEMATOCRIT 45.4 % (42.0-52.0); HEMOGLOBIN 15.3 g/dl (13.5-17.5); MEAN CORPUSCULAR HGB CONC 33.7 g/dl (32.0-36.5); MEAN CORPUSCULAR VOLUME 92.1 fl (80.0-96.0); PLATELET COUNT, AUTOMATED 192 10^3/uL (150-450); RED BLOOD COUNT 4.93 10^6/uL (4.30-6.10); WHITE BLOOD COUNT 6.9 10^3/uL (4.0-10.0)
[2024-10-19 18:49] LABS: ALKALINE PHOSPHATASE 50 U/L (40-129); ALT/SGPT 30 U/L (7.0-40); AST/SGOT 15 U/L (<34); BILIRUBIN,TOTAL 0.6 MG/DL (0.3-1.2); BLOOD UREA NITROGEN 18 MG/DL (9-23); CALCIUM LEVEL 8.5 MG/DL (8.5-10.1); CARBON DIOXIDE LEVEL 30 MMOL/L (20-31); CHLORIDE LEVEL 108 MMOL/L (98-107); CHOLESTEROL LEVEL 105 MG/DL (<200); CHOLESTEROL RISK RATIO 3.18 (<5); CREATININE FOR GFR 0.78 MG/DL (0.70-1.30); GLOMERULAR FILTRATION RATE > 60.0 (>56); GLUCOSE, FASTING 129 MG/DL (60-100); LDL CHOLESTEROL 39.8 MG/DL (<100); POTASSIUM SERUM 4.8 MMOL/L (3.5-5.1); SODIUM LEVEL 144 MMOL/L (136-145); TOTAL PROTEIN 7.1 G/DL (5.7-8.2); TRIGLYCERIDES LEVEL 161 MG/DL (<150)
== END ==
LOC: M PLALAB 15:40
DX: E78.5 Hyperlipidemia, unspecified (principal); R73.03 Prediabetes; I50.20 Unspecified systolic (congestive) heart failure

== ENCOUNTER 2025-04-14 08:44 | Day surgery (SDC) | payer OTHER ==
[~2025-04-14] VITALS: Ht 177.8 cm; Wt 111.8 kg
[~2025-04-14 08:44] MED LIST changes: +FARX1TAB3 PO
[2025-04-14] MEDS ORDERED: LIDOCAINE 2% 100 MG/5 ML SDV (FOR ANES.) As Ordered ONE (10:02)
[2025-04-14] MEDS ORDERED: GLYCOPYRROLATE INJ 0.2 MG/ML 2 ML VIAL As Ordered ONE (10:41)
[2025-04-14 10:57] VITALS: TEMP 97.8
[2025-04-14 11:11] VITALS: BP 109/51; O2SAT 97
== END 2025-04-14 11:19 | disposition home or self-care (01) ==
LOC: M OPP 08:44
PROVIDERS: ATTEND Surgery
DX: K57.30 Diverticulosis of large intestine without perforation or abscess without bleeding (principal); Z86.0100 Personal history of colon polyps, unspecified; Z88.1 Allergy status to other antibiotic agents; Z79.82 Long term (current) use of aspirin; Z79.84 Long term (current) use of oral hypoglycemic drugs; Z79.899 Other long term (current) drug therapy
CPT/HCPCS: 45378; J1596

== ENCOUNTER → 2025-06-09 | Outpatient (REF) | payer OTHER | LOC: M SFHCPLAZ 13:37 | PROVIDERS: ATTEND Student in an Organized Health Care Education/Training Program | DX: Z53.9 Procedure and treatment not carried out, unspecified reason (principal) ==

== ENCOUNTER → 2025-06-09 | Outpatient (CLI) | payer OTHER ==
[2025-06-09 11:49] LABS: PLATELET COUNT, AUTOMATED 184 10^3/uL (150-450)
[2025-06-09 12:12] LABS: ESTIMATED AVERAGE GLUCOSE 131.0 MG/DL (60-110)
[2025-06-09 12:29] LABS: ALT/SGPT 25 U/L (7.0-40); AST/SGOT 20 U/L (<34); CALCIUM LEVEL 9.5 MG/DL (8.5-10.1); CARBON DIOXIDE LEVEL 28 MMOL/L (20-31); CHLORIDE LEVEL 105 MMOL/L (98-107); CREATININE FOR GFR 0.86 MG/DL (0.70-1.30); GLOMERULAR FILTRATION RATE > 90.0 (>56); POTASSIUM SERUM 4.8 MMOL/L (3.5-5.1); SODIUM LEVEL 144 MMOL/L (136-145)
== END ==
LOC: M PLALAB 08:40
DX: I50.20 Unspecified systolic (congestive) heart failure (principal); E11.9 Type 2 diabetes mellitus without complications

== ENCOUNTER → 2025-08-19 | Outpatient (REF) | payer OTHER ==
[~2025-08-19] MED LIST changes: -EZET10TA21 PO; +EZET10TA57 PO
[2025-08-19 13:05] LABS: CHOLESTEROL LEVEL 94.0 MG/DL (<200); CHOLESTEROL RISK RATIO 2.53 (<5); LDL CHOLESTEROL 42.5 MG/DL (<100); NON-HDL-C 56.9 MG/DL; TRIGLYCERIDES LEVEL 72.0 MG/DL (<150)
[2025-08-19 13:39] LABS: CREATININE, URINE 160.2 MG/DL; MALB URINE SIEMENS < 3.0 MG/L
== END ==
LOC: M SFHCCLAY 07:16
DX: E78.5 Hyperlipidemia, unspecified (principal); I50.20 Unspecified systolic (congestive) heart failure